=== PATIENT | male | born 1990 | race Caucasian/White ===

== ENCOUNTER → 2018-11-12 | Outpatient (CLI) | payer MEDICAID ==
[~2018-11-12] MED LIST: BACTROBAN CREAM15 GM PO; DIFLUCAN100 MG PO; LOTRISONE 0.05%1 CRE TP; MOTRIN800 MG PO; MULTIPLE VITAMI1 CAP PO; NKHM
== END | disposition home or self-care (01) ==
LOC: RAD 08:05
DX: R05 Cough (principal); R06.02 Shortness of breath

== ENCOUNTER → 2020-07-13 | Outpatient (CLI) | payer MEDICAID | END | disposition home or self-care (01) | LOC: COVID19 00:17 | PROVIDERS: ATTEND Family Medicine | DX: Z20.828 Contact with and (suspected) exposure to other viral communicable diseases (principal) ==

== ENCOUNTER 2024-02-07 15:09 | Emergency (ER) | payer MEDICAID ==
[~2024-02-07] VITALS: Ht 175.2 cm; Wt 117.9 kg
[2024-02-07 16:41] LABS: BASO % 0.5 % (0.0-1.0); EOS # 0.2 10*3/uL (0.0-0.4); EOS % 2.1 % (1.0-4.0); HEMATOCRIT 41.2 % (42.0-52.0); LYMPH # 1.9 10*3/uL (1.3-4.4); LYMPH % 23.4 % (27.0-41.0); MEAN CELL VOLUME 79.1 fl (80.0-94.0); MEAN CORPUSCULAR HGB 23.6 pg (27.0-31.0); MEAN CORPUSCULAR HGB CONC 29.9 g/dl (33.0-37.0); MEAN PLATELET VOLUME 10.8 fl (9.6-12.3); MONO # 0.6 10*3/uL (0.1-1.0); MONO % 7.2 % (3.0-9.0); NEUT # 5.5 10*3/uL (2.3-7.9); NEUT % 66.4 % (47.0-73.0); PLATELET COUNT AUTOMATED 322 10*3/uL (130-400); RED BLOOD COUNT 5.21 10*6/uL (4.50-5.90); RED CELL DISTRI WIDTH 14.1 % (0-14.5); WHITE BLOOD COUNT 8.2 10*3/uL (4.8-10.8)
[2024-02-07 17:02] LABS: ALKALINE PHOSPHATASE 90 U/L (46-116); BUN 11 mg/dl (9-23); CHLORIDE 105 mmol/L (98-107); POTASSIUM 3.7 mmol/L (3.4-5.1); SGPT/ALT 22 U/L (5-49); TOTAL PROTEIN 7.8 gm/dL (6.0-8.0)
[2024-02-07] MEDS ORDERED: ZITHROMAX250 MG PO (18:48)
[2024-02-07] MEDS ORDERED: OMNICEF300 MG PO (18:48)
== END 2024-02-07 19:20 | disposition home or self-care (01) ==
LOC: ED 15:09
PROVIDERS: Internal Medicine
DX: J18.9 Pneumonia, unspecified organism (principal); Z98.890 Other specified postprocedural states